=== PATIENT | female | born 1985 | race Caucasian/White ===

== ENCOUNTER 2018-11-11 12:47 | Emergency (ER) | payer OTHER ==
[2018-11-11 12:56] VITALS: BP 103/74; PULSE 91; TEMP 98.5; BMI 29.2
[2018-11-11] MEDS ORDERED: IBUPROFEN 400 MG TABLET (FP) PO ONE ×2 (13:48→13:51)
--- NOTE | 2018-11-11 13:52 | PDOC ---
History of Present Illness - General Chief Complaint: Injury Stated Complaint: INJJURY Time Seen by Provider: 11/11/18 13:02 History Source: Patient Exam Limitations: Clinical Condition - History of Present Illness Initial Comments: 11/11/18 13:55 Patient with no significant past medical history present with complaint of left foot pain status post stepping a pothole over an hour ago and twisting her left foot. Patient reported pain and swelling to lateral aspect of left foot. Reported increased pain with ambulation. Denies any other symptoms Timing/Duration: 1-3 hours Past History - Past Medical History Allergies/Adverse Reactions: Allergies Allergy/AdvReac Type Severity Reaction Status Date / Time No Known Allergies Allergy Verified 11/11/18 13:17 Home Medications: Ambulatory Orders Ibuprofen 800 mg PO Q8H PRN #20 tablet 11/11/18 COPD: No CHF: No DVT: No - Immunization History Immunization Up to Date: Yes - Suicide/Smoking/Psychosocial Hx Smoking History: Never smoked Hx Alcohol Use: No Drug/Substance Use Hx: No Review of Systems - Review of Systems Able to Perform ROS?: Yes Is the patient limited Serbian proficient: No Constitutional: No: Weakness HEENTM: No: Symptoms Reported Respiratory: No: Symptoms reported Cardiac (ROS): No: Symptoms Reported : No: Symptoms Reported Musculoskeletal: Yes: Symptoms Reported, Joint Swelling (left midfoot), Muscle Pain (lateral aspect of left foot). No: Muscle Weakness Neurological: No: Numbness, Paresthesia, Tingling All Other Systems: Reviewed and Negative *Physical Exam - Vital Signs Last Vital Signs Temp Pulse Resp BP Pulse Ox 98.5 F 91 H 17 103/74 98 11/11/18 12:54 11/11/18 12:54 11/11/18 12:54 11/11/18 12:54 11/11/18 12:54 - Physical Exam Comments: 11/11/18 14:00 GENERAL: Well developed, well nourished. Awake and alert in mild acute distress. CARDIOVASCULAR: Regular rate and rhythm. No murmurs, rubs, or gallops. PULMONARY: No evidence of respiratory distress. MUSCULOSKELETAL : mild swelling over lateral aspect of left midfoot with moderate tenderness over swelling area of left midfoot. No bony deformities . No tenderness to left ankle or leg. SKIN: Warm and dry. Normal capillary refill. No ecchymosis, bruising or increased erythema of left foot NEUROLOGICAL: Alert, awake, appropriate. No motor deficits in the lower extremities. Gait is normal with mild limp due to pain. PSYCHIATRIC: Cooperative. Good eye contact. Appropriate mood and affect. General Appearance: Yes: Nourished, Appropriately Dressed, Mild Distress ED Treatment Course - RADIOLOGY Radiology Studies Ordered: Category Date Time Status ANKLE & FOOT-LEFT* [RAD] Stat Radiology 11/11/18 13:03 Taken Medical Decision Making - Medical Decision Making 11/11/18 13:57 Patient with no significant past medical history present with complaint of left foot pain status post stepping a pothole over an hour ago and twisting her left foot. Patient reported pain and swelling to lateral aspect of left foot. Reported increased pain with ambulation. Denies any other symptoms Exam significant for mild swelling over lateral aspect of left midfoot with moderate tenderness over the radial swelling. No visible deformity on exam. X-ray of left foot and ankle shows no acute fracture or dislocation. Patient symptoms likely foot sprain. Left foot wrapped in Gregory bandage. Foot place in postop shoe. Crutches provided to help with ambulation and keep weight off foot for the next 48 hours and patient is stable for discharge with advised to apply cold compress today and switch to warm compresses tomorrow for swelling and take Motrin as needed for pain. Ibuprofen 800 mg by mouth given for pain now *DC/Admit/Observation/Transfer Diagnosis at time of Disposition: Sprain of left foot Qualifiers: Encounter type: initial encounter Qualified Code(s): S93.602A - Unspecified sprain of left foot, initial encounter Injury of left foot Qualifiers: Encounter type: initial encounter Qualified Code(s): S99.922A - Unspecified injury of left foot, initial encounter - Discharge Dispostion Disposition: HOME Condition at time of disposition: Stable Decision to Admit order: No - Prescriptions Prescriptions: Ibuprofen 800 mg PO Q8H PRN #20 tablet PRN Reason: pain - Referrals Referrals: Perez Jacobs [Primary Care Provider] - - Patient Instructions Printed Discharge Instructions: DI for Foot Sprain Additional Instructions: non-weight bearing on left foot for the next 48hrs, then ambulate as tolerated. Use provided crutches to help with ambulation. Take prescribed motrin as needed for pain. Apply cold compress to foot today and switch to hot compress tomorrow as needed for swelling. soak foot in adrien salt water as needed for swelling - Post Discharge Activity Forms/Work/School Notes: Back to Work
== END 2018-11-11 13:55 | disposition home or self-care (01) ==
LOC: JERFT 12:47
DX: S93.602A Unspecified sprain of left foot, initial encounter (principal); X50.1XXA Overexertion from prolonged static or awkward postures, initial encounter; Y93.89 Activity, other specified; Y92.488 Other paved roadways as the place of occurrence of the external cause; Y99.8 Other external cause status
CPT/HCPCS: 73610-TC-LT-FY; 73630-TC-LT; 99282-25